=== PATIENT | female | born 1950 | race Caucasian/White ===

== ENCOUNTER 2017-12-29 13:26 | Inpatient (IN) | payer MEDICARE, MEDICAID ==
[2017-12-29 14:07] LABS: BASOPHILS # (AUTO) 0.1 10^3/uL (0.0-0.1); BASOPHILS % (AUTO) 1.4 %; EOSINOPHILS # (AUTO) 0.3 10^3/uL (0.0-0.7); EOSINOPHILS % (AUTO) 3.5 %; HGB - HEMOGLOBIN 13.3 g/dL (12.0-16.0); LYMPHOCYTES # (AUTO) 2.2 10^3/uL (1.5-3.5); LYMPHOCYTES % (AUTO) 24.7 %; MEAN CORPUSCULAR HEMOGLOBIN 28.7 pg (27.0-31.0); MEAN CORPUSCULAR HGB CONC 33.2 g/dL (32.0-36.0); MEAN CORPUSCULAR VOLUME 86.5 fL (81.0-99.0); MEAN PLATELET VOLUME 9.8 fL (7.9-10.8); MONOCYTES # (AUTO) 0.5 10^3/uL (0.0-1.0); MONOCYTES % (AUTO) 5.4 %; NEUTROPHILS # (AUTO) 5.9 10^3/uL (1.5-6.6); PLT - PLATELET COUNT 269 10^3/uL (130-450); RED BLOOD COUNT 4.62 10^6/uL (4.20-5.40); WHITE BLOOD COUNT 9.1 x10^3/uL (4.8-10.8)
[2017-12-29 14:18] LABS: ALBUMIN 3.7 g/dL (3.2-5.5); ALBUMIN/GLOBULIN RATIO 1.1 (1.0-2.2); BILIRUBIN,TOTAL 0.6 mg/dL (0.2-1.0); CREATININE 1.1 mg/dL (0.4-1.0); TOTAL PROTEIN 7.2 g/dL (6.7-8.2)
[2017-12-29] MEDS ORDERED: ASPIRIN CHEW 81 MG TABLET PO STA (15:00)
--- NOTE | 2017-12-29 15:02 | ED Physician Documentation ---
PD HPI CHEST PAIN - Stated complaint Stated Complaint: CHEST PX/SOA - Chief complaint Chief Complaint: Cardiac - History obtained from History obtained from: Patient - History of Present Illness Timing - onset: Other (She has had intermittent chest pain, substernal with occasional radiation to the right arm for the last 4 days. It does get worse with exertion and she is chronically short of breath with a history of diastolic dysfunction and asthma. She also notes pedal edema with some right calf pain and has had some right-sided back pain for the last week. She has not traveled recently. She had a stress test about 4 years ago which per her was negative.) Review of Systems Ten Systems: 10 systems reviewed and negative Constitutional: denies: Fever, Chills Cardiac: reports: Chest pain / pressure. denies: Palpitations Respiratory: reports: Dyspnea. denies: Cough GI: denies: Abdominal Pain, Nausea, Vomiting PD PAST MEDICAL HISTORY - Past Medical History Past Medical History: Yes Cardiovascular: Hypertension, High cholesterol Respiratory: Asthma - Present Medications Home Medications: Ambulatory Orders Medication Instructions Recorded Confirmed Acetaminophen 1,000 mg PO BID 12/29/17 12/29/17 Albuterol Sulf [Ventolin Hfa 1 - 2 puffs INH Q4HR PRN 12/29/17 12/29/17 Inhaler] Aspirin [Adult Aspirin] 81 mg PO DAILY 12/29/17 12/29/17 Atorvastatin Calcium 40 mg PO DAILY 12/29/17 12/29/17 Budesonide [Pulmicort Flexhaler] 1 puffs IH BID 12/29/17 12/29/17 Fluticasone [Flonase] 2 sprays GALA DAILY 12/29/17 12/29/17 Gabapentin 900 mg PO QPM 12/29/17 12/29/17 Isosorbide Mononitrate [Isosorbide 30 mg PO DAILY 12/29/17 12/29/17 Mononitrate ER] LORazepam [Ativan] 0.5 - 1 mg PO BID PRN 12/29/17 12/29/17 Lisinopril 30 mg PO DAILY 12/29/17 12/29/17 Nitroglycerin 0.4 mg SL PRN PRN 12/29/17 12/29/17 Sertraline HCl 100 mg PO DAILY 12/29/17 12/29/17 amLODIPine [Norvasc] 5 mg PO DAILY 12/29/17 12/29/17 - Allergies Allergies/Adverse Reactions: Allergies Allergy/AdvReac Type Severity Reaction Status Date / Time azithromycin Allergy Mild Rash Verified 12/29/17 13:38 ceftazidime Allergy Mild Rash Verified 12/29/17 13:40 ciprofloxacin [From Cipro] Allergy Mild Rash Verified 12/29/17 13:38 codeine Allergy Mild Dizziness Verified 12/29/17 13:39 erythromycin base Allergy Mild Nausea Verified 12/29/17 13:38 - Social History Does the pt drink ETOH?: No Does the pt have substance abuse?: No - Family History Family history: reports: CAD PD ED PE NORMAL - Vitals Vital signs reviewed: Yes - General General: Alert and oriented X 3, No acute distress - HEENT HEENT: PERRL, EOMI - Neck Neck: Supple, no meningeal sign, No bony TTP - Cardiac Cardiac: RRR, No murmur - Respiratory Respiratory: Clear bilaterally, Other (Nontender chest wall) - Abdomen Abdomen: Soft, Non tender - Derm Derm: Normal color, Warm and dry - Extremities Extremities: Other (Moderate bilateral pitting pedal edema with some right calf tenderness) - Neuro Neuro: Alert and oriented X 3, Normal speech Results - Vitals Vitals: Vital Signs - 24 hr 12/29/17 12/29/17 13:28 14:55 Temperature 37.2 C Heart Rate 60 Respiratory 20 Rate Blood Pressure 148/76 H Blood Pressure 201/84 H [Left] O2 Saturation 97 Oxygen O2 Source Room air - EKG (time done) 1333 Rate: Rate (enter#) (60) Rhythm: NSR Garfield: Normal Intervals: Normal NE QRS: Normal Ischemia: Normal ST segments Computer interpretation: Agree with computer - Labs Labs: Laboratory Tests 12/29/17 12/29/17 12/29/17 14:00 14:00 14:00 WBC 9.1 RBC 4.62 Hgb 13.3 Hct 40.0 MCV 86.5 MCH 28.7 MCHC 33.2 RDW 15.0 Plt Count 269 MPV 9.8 Neut # (Auto) 5.9 Lymph # (Auto) 2.2 Ross # (Auto) 0.5 Eos # (Auto) 0.3 Baso # (Auto) 0.1 Absolute Nucleated RBC 0.00 Nucleated RBC % 0.0 D-Dimer Sodium 139 Potassium 4.0 Chloride 105 Carbon Dioxide 25 Anion Gap 9.0 BUN 15 Creatinine 1.1 H Estimated GFR (MDRD) 50 L Glucose 102 H Calcium 9.0 Total Bilirubin 0.6 AST 22 ALT 10 Alkaline Phosphatase 129 H Troponin I < 0.04 Total Protein 7.2 Albumin 3.7 Globulin 3.5 Albumin/Globulin Ratio 1.1 Lipase 26 12/29/17 14:00 WBC RBC Hgb Hct MCV MCH MCHC RDW Plt Count MPV Neut # (Auto) Lymph # (Auto) Ross # (Auto) Eos # (Auto) Baso # (Auto) Absolute Nucleated RBC Nucleated RBC % D-Dimer 314.9 H Sodium Potassium Chloride Carbon Dioxide Anion Gap BUN Creatinine Estimated GFR (MDRD) Glucose Calcium Total Bilirubin AST ALT Alkaline Phosphatase Troponin I Total Protein Albumin Globulin Albumin/Globulin Ratio Lipase PD MEDICAL DECISION MAKING - ED course ED course: 67-year-old woman with intermittent but somewhat otherwise typical chest pain and risk factors. Her EKG is nonischemic and initial troponin negative. That said given her age, obesity, risk factors probably needs formal rule out and stress and spoke with Dr. Pugh for this at 3:15 PM. D-dimer pending on admission. - Sepsis Event Vital Signs: Vital Signs - 24 hr 12/29/17 12/29/17 13:28 14:55 Temperature 37.2 C Heart Rate 60 Respiratory 20 Rate Blood Pressure 148/76 H Blood Pressure 201/84 H [Left] O2 Saturation 97 Oxygen O2 Source Room air Departure - Departure Disposition: ED Place in Observation Clinical Impression: Chest pain Qualifiers: Chest pain type: unspecified Qualified Code(s): R07.9 - Chest pain, unspecified Condition: Stable Discharge Date/Time: 12/29/17 15:56
[2017-12-29] MEDS ORDERED: oxyCODONE 5 MG TABLET PO PRN (15:14)
[2017-12-29] MEDS ORDERED: ONDANSETRON ODT 4 MG TABLET TL PRN (15:14)
[2017-12-29] MEDS ORDERED: ONDANSETRON 4 MG/2 ML VIAL IVP PRN (15:14)
[2017-12-29] MEDS ORDERED: SODIUM CHLORIDE FLUSH 0.9% 10 ML SYRINGE IVP PRN (15:14)
--- NOTE | 2017-12-29 15:15 | XRAY Report ---
Reason: chest pain Procedure Date: 12/29/2017 Accession Number: [id number] / [id number] Procedure: XR - Chest 2 View X-Ray CPT Code: 29564 FULL RESULT: EXAM: CHEST RADIOGRAPHY EXAM DATE: 12/29/2017 02:37 PM. CLINICAL HISTORY: Chest pain. COMPARISON: None. TECHNIQUE: 2 views. FINDINGS: Mild cardiomegaly. Right upper lobe pulmonary nodule measures 1 cm. A smaller nodule is just adjacent to this laterally. No pleural effusion or pneumothorax. No consolidation. IMPRESSION: Mild cardiomegaly. A couple of right upper lobe pulmonary nodules, possibly calcified, largest measures 1 cm. Noncalcified pulmonary nodules are not excluded. No comparisons submitted. A chest CT could further evaluate. RADIA
--- NOTE | 2017-12-29 17:31 | HISTORY & PHYSICAL EXAMINATION ---
Chief Complaint - Chief Complaint Chief Complaint: Chest pain and shortness of breath History of Present Illness - Admitted From Admitted From:: Home/emergency room - History Obtained From Records Reviewed: [facility] History obtained from: Patient's Exam Limitations: None - History of Present Illness HPI Comment/Other: She is a 67-year-old morbidly obese female who has been overweight all of her life. Risk factors for heart disease include diabetes, hypertension, hyperlipidemia, and a known diastolic congestive heart failure. 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 For the last year she is known that her endurance is definitely decreased. 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 She has not been able to do that for over a year because of dyspnea on exertion. For the last month she has noticed that walking 10-20 steps wipes her out with dyspnea on exertion. She denied denies orthopnea, chest pain, fever, sweats. She has no jaw pain or arm pain with this. No diaphoresis. Denies palpitations or sensation of skipped heartbeats. She has lost 10 pounds in the last few weeks because she is desperately trying to lose weight. Then in the last 4 days she has had intermittent substernal chest pain. Sometimes it radiates to her right arm. It only last for a few seconds and then it is gone. It is with exertion. Not with rest. She is also noted that her leg swelling, which is chronic, is gotten a little bit worse in the last week. She has had a stress test in the past which was negative. She says that she has had an echocardiogram which diagnosed her diastolic dysfunction. She starts crying when she says that she is now realized that diastolic dysfunction mean she has congestive heart failure. In the emergency room she was evaluated by Dr. Ruggiero and found to have a mildly elevated blood pressure 148/76. But she was afebrile, bradycardic at 60 , and saturating normally. Her initial troponin is negative. Her initial EKG is unremarkable. She is now placed in observation for chest pain evaluation to include serial troponins, echo, and stress test. Transfer text History - Past Medical History Cardiovascular: reports: Congestive heart failure (Diastolic), Hypertension, High cholesterol Respiratory: reports: Asthma (All her life. Never been intubated. Never on steroids.) Neuro: reports: None Endocrine/Autoimmune: reports: Type 2 diabetes (Diagnosed 4 years ago. Diet controlled, no complications, used to be on metformin and stopped because her numbers were so good.) GI: reports: None SOLUTION MANAGER: reports: Other (, status post ) : reports: Other HEENT: reports: None Psych: reports: Depression, Anxiety Musculoskeletal: reports: Osteoarthritis (In the knees), Other (Degenerative disc disease of the spine) Derm: reports: Other (History of venous stasis dermatitis. Has had nonhealing calf ulcer on left leg for 4 years) - Past Surgical History General: reports: Appendectomy, Bowel surgery (Colon resection for bowel obstruction due to adhesions 1972) Ortho: reports: Carpal Tunnel surgery (Both hands in the past) /SOLUTION MANAGER: reports: section HEENT: reports: Cataracts (Both of them removed with lens implants), Tonsil/ Adenoidectomy - Family & Social History Family History Comment/Other: Dad at age 76 of a ruptured abdominal aortic aneurysm. Before his he had an OK, bypass surgery 3, and congestive heart failure. Mom in her 80s of interstitial lung disease and also had arrhythmias. 2 sisters. One has congestive heart failure and a PE. The other is healthy. One brother who is had bypass surgery 2 in the year 2010 and has COPD and has had an OK. One daughter is healthy Living arrangement: At home Living Situation: Alone Social History Notes: She was born in [facility]. At 9 months of age parents moved to [facility]. She lived there until 2009. [place] live [place] friends that it moved up here. When her brother got sick she went back down to [place] and lived there again. Moved back to [facility] in 2015 on a permanent basis. 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 She lives alone in her own apartment. She has been for many years. She is getting ready to travel to [place] between January 10 and January 24. She is desperate to do this trip and has been looking forward to it because as per her daughter lives. She starts crying at the idea that she may not get to go and lose the money. As well as not getting to see her daughter who she misses terribly. She has never smoked. Rarely drank. Has no history of alcohol abuse. Has never used recreational drugs. - Substance History Use: Uses substance without health or social issues: NONE Abuse: Recurrent use of substance despite neg consequences: NONE Dependence: Experiences withdrawal or developed tolerances: NONE - POLST Patient has POLST: No POLST Status: Full Code Meds/Allgy - Home Medications Home Medications: Ambulatory Orders Medication Instructions Recorded Confirmed Acetaminophen 1,000 mg PO BID 12/29/17 12/29/17 Albuterol Sulf [Ventolin Hfa 1 - 2 puffs INH Q4HR PRN 12/29/17 12/29/17 Inhaler] Aspirin [Adult Aspirin] 81 mg PO DAILY 12/29/17 12/29/17 Atorvastatin Calcium 40 mg PO DAILY 12/29/17 12/29/17 Budesonide [Pulmicort Flexhaler] 1 puffs IH BID 12/29/17 12/29/17 Fluticasone [Flonase] 2 sprays GALA DAILY 12/29/17 12/29/17 Gabapentin 900 mg PO QPM 12/29/17 12/29/17 Isosorbide Mononitrate [Isosorbide 30 mg PO DAILY 12/29/17 12/29/17 Mononitrate ER] LORazepam [Ativan] 0.5 - 1 mg PO BID PRN 12/29/17 12/29/17 Lisinopril 30 mg PO DAILY 12/29/17 12/29/17 Nitroglycerin 0.4 mg SL PRN PRN 12/29/17 12/29/17 Sertraline HCl 100 mg PO DAILY 12/29/17 12/29/17 amLODIPine [Norvasc] 5 mg PO DAILY 12/29/17 12/29/17 - Allergies Allergies/Adverse Reactions: Allergies Allergy/AdvReac Type Severity Reaction Status Date / Time azithromycin Allergy Mild Rash Verified 12/29/17 13:38 ceftazidime Allergy Mild Rash Verified 12/29/17 13:40 ciprofloxacin [From Cipro] Allergy Mild Rash Verified 12/29/17 13:38 codeine Allergy Mild Dizziness Verified 12/29/17 13:39 erythromycin base Allergy Mild Nausea Verified 12/29/17 13:38 Review of Systems - Constitutional Constitutional: reports: Weight loss (10 pounds, delivered over the last few months). denies: Fatigue, Fever, Chills, Malaise, Weakness, Poor appetite, Diaphoresis - Eyes Eyes: denies: Pain, Irritation, Amaurosis, Blurred vision - Ears, Nose & Throat Ears, Nose & Throat: denies: Ear pain, Hearing loss, Hearing aids, Tinnitus, Vertigo, Nasal obstruction, Nasal congestion, Postnasal drainage - Cardiovascular Cariovascular: reports: Chest pain, Edema, Exertional dyspnea, Decr. exercise tolerance. denies: Irregular heart rate, Palpitations, Lightheadedness, Syncope , Orthopnea - Respiratory Respiratory: reports: Wheezing (Rarely may be 2 or 3 times a year with her asthma.), Orthopnea, SOB with exertion, Apnea (Denies). denies: Cough, Sputum production - Gastrointestinal Gastrointestinal: reports: Other (Has never had a colonoscopy). denies: Abdominal pain, Abdominal distention, Constipation, Diarrhea, Change in bowel habits - Genitourinary Genitourinary: reports: Urgency, Incontinence - Musculoskeletal Musculoskeletal: denies: Muscle pain, Back pain, Muscle aches - Integumentary Integumentary: denies: Rash, Pruritis, Lesions - Neurological Neurological: denies: General weakness, Focal weakness, Headache, Dizziness, Memory problems, Pre-existing deficit - Psychiatric Psychiatric: reports: Depression, Anxiety - Endocrine Endocrine: denies: Polyuria, Polydypsia, Polyphagia - Hematologic/Lymphatic Hematologic/Lymphatic: denies: Anemia, Bruising, Petechiae Exam - Vital Signs Reviewed Vital Signs: Yes Vital Signs: Vital Signs x48h Temp Pulse Pulse Resp BP BP Pulse Ox 12/29/17 16:43 56 L 155/73 H 12/29/17 16:00 36.7 C 55 L 20 208/83 H 100 12/29/17 15:56 56 L 16 202/104 H 99 12/29/17 15:30 56 L 20 202/104 H 96 - Physical Exam General Appearance: positive: No acute distress, Alert, Other (Short statured morbidly obese female who at 5 foot 1 inches tall with 123 kg. Able to get up out of the bed, stand, get in and out of her hospital gown without any difficulty or dyspnea. But she says that walking down the hallway 10 feet will wipe her out.) Eyes Bilateral: positive: PERRL, EOMI ENT: positive: Pharynx nml Neck: positive: Other (Neck is thick and short, difficult to assess for JVD). negative: Stiff neck, Carotid bruit Respiratory: positive: No respiratory distress. negative: Wheezes, Rales, Rhonchi Cardiovascular: positive: Regular rate & rhythm, No murmur. negative: Gallop/S4 , Friction rub Peripheral Pulses: positive: 1+ Abdomen: positive: Non-tender, Nml bowel sounds, No distention, Other (Huge abdominal pannus with changes of resolving Joseline or heat rash underneath the pannus). negative: Guarding, Rebound Skin: positive: Warm, Dry, Other (Venous stasis changes that are chronic of the lower extremities. All of her skin is closed, healed except for that back left calf ulcer. Nursing is taken a picture of it.) Extremities: positive: Non-tender, Pedal edema (Mild.) Neurologic/Psychiatric: positive: Oriented x3, CN's nml (2-12), Motor nml, Sensation nml Conclusion/Plan - Problem List (1) Chest pain Conclusion/Plan: In a patient who has all the risk factors for coronary artery disease including obesity, hypertension, diabetes, hyperlipidemia and a family history. History is that of a progressive dyspnea for over a year, worsening over the last month , and now with chest pain for the last 4 days. Troponins are negative initially. Plan: Place in observation status Serial troponins every 63 more sets. Aspirin already given. Patient is already on atorvastatin, Imdur but not a beta-gloria. Will give dose of beta-gloria tonight. If troponins are negative, Lexiscan stress test tomorrow Qualifiers: Chest pain type: unspecified Qualified Code(s): R07.9 - Chest pain, unspecified (2) Chronic diastolic congestive heart failure, NYHA class 3 Conclusion/Plan: There is a gradual deterioration in her endurance that she is very descriptive of starting over a year ago. She is already on medical management with a nitrate, SANTI inhibitor, calcium channel gloria. Currently not on a diuretic. Plan echocardiogram in the morning. Await results of Lexiscan stress test. (3) Controlled type 2 diabetes mellitus with complication, without long-term current use of insulin Conclusion/Plan: Currently diet controlled. Random glucose is 102. She will be on a carb controlled diet, no medications during this hospitalization at this time. A1c in a.m. (4) Essential (primary) hypertension Conclusion/Plan: Her systolic is between 142 and 202. Quite high. She says she is usually not this high at home or in her doctor's office. She is on Norvasc, lisinopril, Imdur, and I will add a beta-gloria. Obviously, because of her asthma, this may need to be revisited. (5) CKD (chronic kidney disease) stage 3, GFR 30-59 ml/min Conclusion/Plan: Current GFR is 50. This may be due to hypertensive kidney disease. Diabetic kidney disease. I do not know what her baseline is. She will need to discuss this with her primary care provider when she returns to see him in follow-up next week. (6) Hyperlipidemia LDL goal <100 Conclusion/Plan: Fasting lipid profile in a.m. (7) History of extrinsic asthma Conclusion/Plan: We do not have long-acting bronchodilators via inhaler. Will use as needed albuterol while here. (8) Ulcer of left calf Conclusion/Plan: She has had this for 4 years. Thought to go through my head include peripheral vascular disease, Majolin's ulcer. She may need a skin biopsy if it has not healed in 4 years. Qualifiers: Non-pressure ulcer stage: with fat layer exposed Qualified Code(s): L97.222 - Non-pressure chronic ulcer of left calf with fat layer exposed (9) Full code status Conclusion/Plan: She feels that if she has a cardiopulmonary arrest, she would like to be intubated, have chest compressions, and brought back. - Lab Results Lab results reviewed: Yes Fish Bones: 12/29/17 14:00 12/29/17 14:00 Other Lab Results: Laboratory Tests 12/29/17 14:00 Troponin I < 0.04 - Diagnostic Imaging Results Diagnostic Imaging Results: positive: Final report reviewed Diagnostic Imaging Results Comments: FINDINGS: Mild cardiomegaly. Right upper lobe pulmonary nodule measures 1 cm. A smaller nodule is just adjacent to this laterally. No pleural effusion or pneumothorax. No consolidation. IMPRESSION: Mild cardiomegaly. A couple of right upper lobe pulmonary nodules, possibly calcified, largest measures 1 cm. Noncalcified pulmonary nodules are not excluded. No comparisons submitted. A chest CT could further evaluate. - EKG Results EKG Interpreted Independently: No EKG Comparison: Old EKG unavailable EKG Findings: NSR. Slightly delayed R wave progression at V4. Voltage low. Core Measures - Anticipated LOS I expect patient to be DC'd or transferred within 96 hours.: Yes - DVT/VTE - Prophylaxis VTE/DVT Device ordered at admit?: No Not Ordered - Low Risk: Very low risk
[2017-12-29] MEDS: SODIUM CHLORIDE FLUSH 0.9% 10 ML SYRINGE IVP SCH (20:38)
[2017-12-30] MEDS: SODIUM CHLORIDE FLUSH 0.9% 10 ML SYRINGE IVP SCH ×3 (03:42→20:43)
[2017-12-30 06:26] LABS: CALCIUM 8.5 mg/dL (8.5-10.3)
[2017-12-30] MEDS: POLYETHYLENE GLYCOL 3350 17 GM PACKET PO SCH (09:31)
[2017-12-30] MEDS ORDERED: REGADENOSON 0.4 MG/5 ML SYRINGE IVP ONE (10:33)
[2017-12-30] MEDS: ISOSORBIDE MONONITRATE ER 30 MG TABLET PO SCH (12:20)
[2017-12-30] MEDS: LISINOPRIL 20 MG TABLET PO SCH (12:20)
--- NOTE | 2017-12-30 13:51 | PROVIDER PROGRESS NOTE ---
Assessment/Plan - Problem List (1) Malignant essential hypertension Assessment/Plan: The patient's BP meds were not ordered after reconciled last night. No RN told the Asp Developer. No RN told the daytime Hospitalist. No message to anyone from the Pharmacist. (I wrote a Safety Incident report about that). This mid-morning, when pt was to have her stress test, BP was 240/140. BP remained very elevated despite getting her Lisinopril and Imdur STAT. She will need medication adjustment. Monitor BP more frequently today. Move her to inpatient status. (2) Chest pain Qualifiers: Chest pain type: unspecified Qualified Code(s): R07.9 - Chest pain, unspecified Assessment/Plan: Trops are neg x 3. Stress test is pending, but will not be done today, due to malignant HTN. Pt moved to inpatient status. (3) Chronic diastolic congestive heart failure, NYHA class 3 Assessment/Plan: HTN and CAD with ischemia may be the cause of this diastolic dysfunction. Continue to treat BP and antianginal meds. (4) DM type 2 (diabetes mellitus, type 2) Assessment/Plan: Pt only on a diet for DM control. Continue carb-control diet. - Current Meds Current Meds: Current Medications Generic Name Dose Route Start Last Admin Trade Name Freq PRN Reason Stop Dose Admin Isosorbide Mononitrate 30 mg 12/30/17 13:00 12/30/17 12:20 Imdur PO 30 mg DAILY LOUANN Administration Lisinopril 30 mg 12/30/17 12:15 12/30/17 12:20 Zestril PO 30 mg DAILY LOUANN Administration Polyethylene Glycol 17 gm 12/30/17 09:00 12/30/17 09:31 Miralax PO Not Given DAILY LOUANN Sodium Chloride 10 ml 12/29/17 17:00 12/30/17 12:20 Normal Saline Flush 0.9% IVP 10 ml 0100,[id number],1700 LOUANN Administration - Lab Result Fish Bone Diagrams: 12/29/17 14:00 01/01/18 05:30 - Additional Planning My Orders: My Active Orders 12/30/17 12:02 Albuterol 2.5 mg INH Q4HR PRN 12/30/17 12:15 Lisinopril [Zestril] 30 mg PO DAILY 12/30/17 13:00 Aspirin EC [Ecotrin] 81 mg PO DAILY Budesonide [Pulmicort] 0.5 mg INH RTBID Isosorbide Mononitrate ER [Imdur] 30 mg PO DAILY 12/30/17 13:42 Transfer [Admit \ Transfer \ Status] [] .ONCE 12/30/17 13:44 Telemetry- [] Q4HR 12/30/17 21:00 Gabapentin [Neurontin] 900 mg PO QPM 12/30/17 Dinner DIET [Low Sodium Diet] [DIET] 12/31/17 09:00 Sertraline [Zoloft] 100 mg PO DAILY Subjective - Subjective Patient Reports: Other (Still had 1-2 episodes of brief CP. Pt wondered why she got no BP meds last night, which is when she normally gets them.) Objective Vital Signs: Vital Signs - 24 hr 12/29/17 12/29/17 12/29/17 14:55 15:30 15:56 Temperature Heart Rate 56 L 56 L Heart Rate [ Radial] Respiratory 20 16 Rate Blood Pressure 202/104 H 202/104 H Blood Pressure [Left Radial artery] Blood Pressure 201/84 H [Left] O2 Saturation 96 99 12/29/17 12/29/17 12/29/17 16:00 16:43 20:13 Temperature 36.7 C 36.8 C Heart Rate Heart Rate [ 55 L 56 L 56 L Radial] Respiratory 20 16 Rate Blood Pressure Blood Pressure 208/83 H 155/73 H 139/66 H [Left Radial artery] Blood Pressure [Left] O2 Saturation 100 100 12/30/17 08:00 Temperature 36.5 C Heart Rate Heart Rate [ 67 Radial] Respiratory 16 Rate Blood Pressure Blood Pressure 156/66 H [Left Radial artery] Blood Pressure [Left] O2 Saturation 98 Oxygen O2 Source Room air I&O (Last 24 Hrs): Intake and Output Totals x24h 12/28/17 12/29/17 12/30/17 23:59 23:59 23:59 Intake Total 536 Balance 536 General: Alert, Oriented x3 HEENT: Mucous membr. moist/pink Neck: Supple Neuro: Non Focal Cardiovascular: No murmurs Respiratory: No respiratory distress Abdomen: Soft, Other (Obese) Extremities: No edema - Results Results: Laboratory Results WBC 9.1 x10^3/uL (4.8-10.8) 12/29/17 14:00 RBC 4.62 10^6/uL (4.20-5.40) 12/29/17 14:00 Hgb 13.3 g/dL (12.0-16.0) 12/29/17 14:00 Hct 40.0 % (37.0-47.0) 12/29/17 14:00 MCV 86.5 fL (81.0-99.0) 12/29/17 14:00 MCH 28.7 pg (27.0-31.0) 12/29/17 14:00 MCHC 33.2 g/dL (32.0-36.0) 12/29/17 14:00 RDW 15.0 % (12.0-15.0) 12/29/17 14:00 Plt Count 269 10^3/uL (130-450) 12/29/17 14:00 MPV 9.8 fL (7.9-10.8) 12/29/17 14:00 Neut # (Auto) 5.9 10^3/uL (1.5-6.6) 12/29/17 14:00 Lymph # (Auto) 2.2 10^3/uL (1.5-3.5) 12/29/17 14:00 Riley # (Auto) 0.5 10^3/uL (0.0-1.0) 12/29/17 14:00 Eos # (Auto) 0.3 10^3/uL (0.0-0.7) 12/29/17 14:00 Baso # (Auto) 0.1 10^3/uL (0.0-0.1) 12/29/17 14:00 Absolute Nucleated RBC 0.00 x10^3/uL 12/29/17 14:00 Nucleated RBC % 0.0 /100WBC 12/29/17 14:00 D-Dimer 314.9 ng/mL (200.0-255.0) H 12/29/17 14:00 Sodium 138 mmol/L (135-145) 12/30/17 05:55 Potassium 3.9 mmol/L (3.5-5.0) 12/30/17 05:55 Chloride 104 mmol/L (101-111) 12/30/17 05:55 Carbon Dioxide 26 mmol/L (21-32) 12/30/17 05:55 Anion Gap 8.0 (6-13) 12/30/17 05:55 BUN 18 mg/dL (6-20) 12/30/17 05:55 Creatinine 1.0 mg/dL (0.4-1.0) 12/30/17 05:55 Estimated GFR (MDRD) 55 (>89) L 12/30/17 05:55 Glucose 118 mg/dL (70-100) H 12/30/17 05:55 Calcium 8.5 mg/dL (8.5-10.3) 12/30/17 05:55 Total Bilirubin 0.6 mg/dL (0.2-1.0) 12/29/17 14:00 AST 22 IU/L (10-42) 12/29/17 14:00 ALT 10 IU/L (10-60) 12/29/17 14:00 Alkaline Phosphatase 129 IU/L (42-121) H 12/29/17 14:00 Troponin I < 0.04 ng/mL (<0.49) 12/30/17 02:15 Total Protein 7.2 g/dL (6.7-8.2) 12/29/17 14:00 Albumin 3.7 g/dL (3.2-5.5) 12/29/17 14:00 Globulin 3.5 g/dL (2.1-4.2) 12/29/17 14:00 Albumin/Globulin Ratio 1.1 (1.0-2.2) 12/29/17 14:00 Lipase 26 U/L (22-51) 12/29/17 14:00
[2017-12-30] MEDS: ASPIRIN EC 81 MG TABLET PO SCH (15:10)
[2017-12-30] MEDS: BUDESONIDE 0.5 MG/2 ML NEB INH SCH (20:15)
[2017-12-30] MEDS: GABAPENTIN 300 MG CAPSULE PO SCH (20:44)
[2017-12-30] MEDS: ACETAMINOPHEN 325 MG TABLET PO PRN ×2 (20:48→21:25)
[2017-12-31] MEDS: SODIUM CHLORIDE FLUSH 0.9% 10 ML SYRINGE IVP SCH ×4 (00:41→23:38)
[2017-12-31] MEDS: BUDESONIDE 0.5 MG/2 ML NEB INH SCH ×3 (01:56→20:47)
[2017-12-31] MEDS: POLYETHYLENE GLYCOL 3350 17 GM PACKET PO SCH (08:25)
[2017-12-31] MEDS: LISINOPRIL 20 MG TABLET PO SCH (08:25)
[2017-12-31] MEDS: ISOSORBIDE MONONITRATE ER 30 MG TABLET PO SCH ×2 (08:25→20:18)
[2017-12-31] MEDS: ASPIRIN EC 81 MG TABLET PO SCH (08:25)
[2017-12-31] MEDS: SERTRALINE 50 MG TABLET PO SCH (08:33)
[2017-12-31] MEDS ORDERED: amLODIPine 5 MG TABLET PO SCH (09:00)
[2017-12-31] MEDS ORDERED: REGADENOSON 0.4 MG/5 ML SYRINGE IVP ONE ×2 (10:29→13:28)
--- NOTE | 2017-12-31 15:04 | Nuclear Medicine Report ---
Reason: chest pain Procedure Date: 12/31/2017 Accession Number: [id number] / [id number] Procedure: NM - Myocardial Perfusion STR/RST CPT Code: FULL RESULT: EXAM: SINGLE-ISOTOPE PHARMACOLOGICAL STRESS TEST WITH REGADENOSON. SINGLE-ISOTOPE AND ONE-DAY REST/STRESS MYOCARDIAL PERFUSION SCANS WITH TOMOGRAPHIC IMAGING, QUANTITATIVE ANALYSIS, WALL MOTION ANALYSIS AND CALCULATION OF EJECTION FRACTION. EXAM DATE: 12/31/2017 01:50 PM. CLINICAL HISTORY: Chest pain. COMPARISON: None available. TECHNIQUE: After the intravenous administration of 8.9 mCi of Tc-99m sestamibi, a rest myocardial perfusion scan was done with tomography. Motion correction was applied when appropriate. After an appropriate delay, pharmacological stress was performed with the infusion of 0.4 mg regadenoson per protocol. According to protocol, 38 mCi of Tc-99m sestamibi was injected for stress myocardial perfusion scan. Motion correction was applied when appropriate. Gated tomographic images were obtained for wall motion analysis and computation of left ventricular ejection fraction. FINDINGS: Images show a small, mild, reversible defect in the distal anterolateral wall. There is a small, mild, fixed defect in the distal anteroseptal wall. No other convincing fixed or reversible perfusion defects. Computer analysis: Summed stress score 4 Summed rest score 0 Summed difference score 4 Wall motion analysis demonstrates no focal wall motion abnormality. The left ventricular end-diastolic volume is 81 cc. The left ventricular end-systolic volume is 20 cc. The left ventricular ejection fraction is calculated to be 76%. IMPRESSION: 1. Small, mild, fixed defect in the distal anteroseptal wall. Small, mild, reversible defect in the distal anterolateral wall. 2. Left ventricular ejection fraction of 76%. 3. Normal segmental and global wall motion. 4. Normal left ventricular cavity size, no change with stress. 5. Based on computer analysis, mildly abnormal exam with mild ischemia. RADIA
--- NOTE | 2017-12-31 19:37 | PROVIDER PROGRESS NOTE ---
Assessment/Plan - Problem List (1) Malignant essential hypertension Assessment/Plan: Restarting her usual doses of meds has resulted in BP control. Continue present meds and with increase of Nitrates (see below), better BP expected. Monitor VS per routine (2) Chest pain Qualifiers: Chest pain type: unspecified Qualified Code(s): R07.9 - Chest pain, unspecified Assessment/Plan: Abnormal stress test showing reversible ischemia. Will increase Nitrate dose. Will contact her established habitat management coordinator regarding transfer for a coronary angiogram. I discussed this plan with the patient and she is agreeable and provided the name of her habitat management coordinator: Dr Villa Pinto at [facility]. (3) Chronic diastolic congestive heart failure, NYHA class 3 Assessment/Plan: CAD with ishemia plus HTN are adding to this problem. Continue present meds as she is not in overt CHF currently. (4) DM type 2 (diabetes mellitus, type 2) Assessment/Plan: Continue dietary management. - Current Meds Current Meds: Current Medications Generic Name Dose Route Start Last Admin Trade Name Del PRN Reason Stop Dose Admin Acetaminophen 650 mg 12/29/17 15:14 12/30/17 21:25 Tylenol PO 650 mg Q4HR PRN Administration Pain 1 to 4 Aspirin 81 mg 12/30/17 13:00 12/31/17 08:25 Ecotrin PO 81 mg DAILY LOUANN Administration Budesonide 0.5 mg 12/30/17 13:00 12/31/17 07:45 Pulmicort INH 0.5 mg RTBID LOUANN Administration Gabapentin 900 mg 12/30/17 21:00 12/30/17 20:44 Neurontin PO 900 mg QPM LOUANN Administration Lisinopril 30 mg 12/30/17 12:15 12/31/17 08:25 Zestril PO 30 mg DAILY LOUANN Administration Ondansetron HCl 4 mg 12/29/17 15:14 12/31/17 12:03 Zofran Inj IVP 4 mg Q6HR PRN Administration Nausea / Vomiting Polyethylene Glycol 17 gm 12/30/17 09:00 12/31/17 08:25 Miralax PO Not Given DAILY LOUANN Sertraline HCl 100 mg 12/31/17 09:00 12/31/17 08:33 Zoloft PO 100 mg DAILY LOUANN Administration Sodium Chloride 10 ml 12/29/17 15:14 12/31/17 12:04 Normal Saline Flush 0.9% IVP 10 ml PRN PRN Administration NEEDED PER PROVIDER ORDERS Sodium Chloride 10 ml 12/29/17 17:00 12/31/17 08:33 Normal Saline Flush 0.9% IVP 10 ml 0100,0900,1700 LOUANN Administration - Lab Result Fish Bone Diagrams: 12/29/17 14:00 01/01/18 05:30 - Additional Planning My Orders: My Active Orders 12/30/17 20:17 RT [Nebulizer/MDI Tx.] [RC] BID 12/30/17 21:00 Gabapentin [Neurontin] 900 mg PO QPM 12/31/17 09:00 Sertraline [Zoloft] 100 mg PO DAILY 12/31/17 21:00 Isosorbide Mononitrate ER [Imdur] 30 mg PO BID 12/31/17 Dinner Carb-controlled Diet [DIET] 01/01/18 05:00 BMP - BASIC METABOLIC PANEL [CHEM] DAILYLAB LIPID Panel [CHEM] Routine Subjective - Subjective Patient Reports: Other (1 episode of chest pain overnight, resolved on its own in 15 min) Objective Vital Signs: Vital Signs - 24 hr 12/30/17 12/30/17 12/31/17 20:05 20:20 00:45 Temperature 36.7 C 36.5 C Heart Rate 62 Heart Rate [ 62 64 Radial] Respiratory 18 18 16 Rate Blood Pressure 145/72 H 130/51 L [Left Radial artery] O2 Saturation 98 97 12/31/17 12/31/17 12/31/17 05:40 07:45 08:00 Temperature 36.7 C 36.3 C L Heart Rate 58 L Heart Rate [ 60 65 Radial] Respiratory 16 14 20 Rate Blood Pressure 140/53 H 151/66 H [Left Radial artery] O2 Saturation 96 97 12/31/17 12/31/17 12/31/17 13:46 15:51 16:18 Temperature 36.5 C 36.4 C L Heart Rate Heart Rate [ 61 64 61 Radial] Respiratory 20 20 Rate Blood Pressure 130/61 121/38 L 139/65 H [Left Radial artery] O2 Saturation 93 97 Oxygen O2 Source Room air I&O (Last 24 Hrs): Intake and Output Totals x24h 12/29/17 12/30/17 12/31/17 23:59 23:59 23:59 Intake Total 536 1487 550 Balance 536 1487 550 General: Alert, Oriented x3 HEENT: Mucous membr. moist/pink Neck: Supple, No JVD Neuro: Non Focal Cardiovascular: No murmurs Respiratory: No respiratory distress, Breath sounds nml Abdomen: Other (Obese, non-tender) Extremities: No edema - Results Results: Laboratory Results WBC 9.1 x10^3/uL (4.8-10.8) 12/29/17 14:00 RBC 4.62 10^6/uL (4.20-5.40) 12/29/17 14:00 Hgb 13.3 g/dL (12.0-16.0) 12/29/17 14:00 Hct 40.0 % (37.0-47.0) 12/29/17 14:00 MCV 86.5 fL (81.0-99.0) 12/29/17 14:00 MCH 28.7 pg (27.0-31.0) 12/29/17 14:00 MCHC 33.2 g/dL (32.0-36.0) 12/29/17 14:00 RDW 15.0 % (12.0-15.0) 12/29/17 14:00 Plt Count 269 10^3/uL (130-450) 12/29/17 14:00 MPV 9.8 fL (7.9-10.8) 12/29/17 14:00 Neut # (Auto) 5.9 10^3/uL (1.5-6.6) 12/29/17 14:00 Lymph # (Auto) 2.2 10^3/uL (1.5-3.5) 12/29/17 14:00 Stewart # (Auto) 0.5 10^3/uL (0.0-1.0) 12/29/17 14:00 Eos # (Auto) 0.3 10^3/uL (0.0-0.7) 12/29/17 14:00 Baso # (Auto) 0.1 10^3/uL (0.0-0.1) 12/29/17 14:00 Absolute Nucleated RBC 0.00 x10^3/uL 12/29/17 14:00 Nucleated RBC % 0.0 /100WBC 12/29/17 14:00 D-Dimer 314.9 ng/mL (200.0-255.0) H 12/29/17 14:00 Sodium 138 mmol/L (135-145) 12/30/17 05:55 Potassium 3.9 mmol/L (3.5-5.0) 12/30/17 05:55 Chloride 104 mmol/L (101-111) 12/30/17 05:55 Carbon Dioxide 26 mmol/L (21-32) 12/30/17 05:55 Anion Gap 8.0 (6-13) 12/30/17 05:55 BUN 18 mg/dL (6-20) 12/30/17 05:55 Creatinine 1.0 mg/dL (0.4-1.0) 12/30/17 05:55 Estimated GFR (MDRD) 55 (>89) L 12/30/17 05:55 Glucose 118 mg/dL (70-100) H 12/30/17 05:55 Calcium 8.5 mg/dL (8.5-10.3) 12/30/17 05:55 Total Bilirubin 0.6 mg/dL (0.2-1.0) 12/29/17 14:00 AST 22 IU/L (10-42) 12/29/17 14:00 ALT 10 IU/L (10-60) 12/29/17 14:00 Alkaline Phosphatase 129 IU/L (42-121) H 12/29/17 14:00 Troponin I < 0.04 ng/mL (<0.49) 12/30/17 02:15 Total Protein 7.2 g/dL (6.7-8.2) 12/29/17 14:00 Albumin 3.7 g/dL (3.2-5.5) 12/29/17 14:00 Globulin 3.5 g/dL (2.1-4.2) 12/29/17 14:00 Albumin/Globulin Ratio 1.1 (1.0-2.2) 12/29/17 14:00 Lipase 26 U/L (22-51) 12/29/17 14:00 ABX Reporting Has patient been on IV antibiotics over the past 48 hours?: No
[2017-12-31] MEDS: GABAPENTIN 300 MG CAPSULE PO SCH (20:17)
[2017-12-31] MEDS: ALBUTEROL NEB 2.5 MG/3 ML INH PRN (20:46)
[2017-12-31] MEDS ORDERED: ATORVASTATIN 40 MG TABLET PO SCH (21:00)
[2018-01-01 06:24] LABS: BUN - BLOOD UREA NITROGEN 17 mg/dL (6-20); CALCIUM 8.6 mg/dL (8.5-10.3); CARBON DIOXIDE - CO2 27 mmol/L (21-32); CHLORIDE 104 mmol/L (101-111); CHOL/HDL RATIO 4.9 (<4.4); CHOLESTEROL 190 mg/dL; CREATININE 1.1 mg/dL (0.4-1.0); GFR - MDRD 50 (>89); GLUCOSE 111 mg/dL (70-100); HDL CHOLESTEROL 39 mg/dL; LDL CHOLESTEROL,CALCULATED 123 mg/dL; LDL/HDL RATIO 3.2 (<4.4); SODIUM 138 mmol/L (135-145); VLDL CHOLESTEROL 28 mg/dL
[2018-01-01] MEDS: BUDESONIDE 0.5 MG/2 ML NEB INH SCH (08:37)
[2018-01-01] MEDS: ALBUTEROL NEB 2.5 MG/3 ML INH PRN (08:37)
[2018-01-01] MEDS: LISINOPRIL 20 MG TABLET PO SCH (08:39)
[2018-01-01] MEDS: SERTRALINE 50 MG TABLET PO SCH (08:39)
[2018-01-01] MEDS: ASPIRIN EC 81 MG TABLET PO SCH (08:40)
[2018-01-01] MEDS: ISOSORBIDE MONONITRATE ER 30 MG TABLET PO SCH (08:40)
[2018-01-01] MEDS: POLYETHYLENE GLYCOL 3350 17 GM PACKET PO SCH (08:40)
[2018-01-01] MEDS: SODIUM CHLORIDE FLUSH 0.9% 10 ML SYRINGE IVP SCH (08:40)
--- NOTE | 2018-01-01 13:10 | Discharge Plan ---
Discharge Plan Disposition: 02 Transfer Acute Care Hosp Condition: Stable Instruction Topics: CAD No Smoking: If you smoke, Please STOP! Call for help. Follow-up with: Leonidas Oconnell MD [Primary Care Provider] -
[2018-01-01 15:38] VITALS: BP 129/50
--- NOTE | 2018-01-08 01:58 | CARDIAC PROCEDURE NOTE ---
DATE OF SERVICE: 12/31/2017 Physician: Mitzi Sung MD INDICATION FOR STRESS TEST: Chest pain. CORONARY RISK FACTORS 1. Hypertension. 2. Diabetes. 3. Family history of heart disease. 4. Obesity. 5. Postmenopausal status. After signing informed consent, the patient underwent a Lexiscan pharmaceutical stress test with myocardial perfusion nuclear imaging. RESTING ELECTROCARDIOGRAM: Normal sinus rhythm and within normal limits. The patient developed chest pain and nausea with Lexiscan, which resolved spontaneously after 5 minutes. Resting heart rate 57, peak heart rate 79, resting blood pressure 152/78, peak blood pressure 174/80. PEAK ELECTROCARDIOGRAM: New T-wave flattening in leads III and aVF. IMPRESSION: Abnormal electrocardiogram changes that suggest ischemia on this pharmaceutical stress test. NUCLEAR IMAGES: Reported separately. TD: 01/07/2018 20:20 MTDD
--- NOTE | 2018-01-11 17:17 | DISCHARGE SUMMARY ---
Physician: Mitzi Sung MD DATE OF ADMISSION: 12/30/2017 DATE OF DISCHARGE: 01/01/2018 HISTORY OF PRESENT ILLNESS: This is a 67-year-old white female with history of obesity, diabetes with diet control, hyperlipidemia, hypertension, family history of heart disease, who presents with a 1-year history of progressive dyspnea on exertion and then over the past 1 month severe dyspnea even walking 10-20 steps. For the previous 4 days, she has had intermittent exertional chest pain that lasts less than 5 minutes. She presented to the emergency room because of these complaints and was placed in Observation to evaluate chest pain and shortness of breath. HOSPITAL COURSE AND DISCHARGE DIAGNOSES 1. Malignant essential hypertension. The patient had an admission blood pressure of 202/104. She described that her blood pressure medications have recently been escalated. On the following day, blood pressure was noted to be 240/100, and she was changed from Observation status to full admission for management of hypertension and the other problems. With increasing doses of medications plus new anginal medications, her blood pressure was controlled at the time of transfer: 129/50 with a heart rate of 54. 2. Chest pain. The patient had 3 troponins, which were all negative. She went on to have a Lexiscan stress test with myocardial perfusion imaging. The patient developed chest pain and nausea with the Lexiscan that resolved spontaneously after 5 minutes. The patient's EKG at rest showed normal sinus rhythm and was within normal limits, but with stress, she had new T-wave flattening in leads III and aVF. The nuclear image showed a small reversible defect in the distal anterolateral wall and a small fixed defect in the distal anteroseptal wall. I called her established hotel lobby concierge, Dr. Dat Pinto, who accepted her in transfer for a planned angiogram, on the service of her partner, Dr. Rider. The patient was transferred on 01/01/2018 to [facility]. 3. Chronic diastolic heart failure, [place] Heart Association class III. The patient has had prior Echocardiograms. An Echo done during this admission showed mild LVH, EF of 55% to 60% with diastolic dysfunction indeterminate. The right heart was normal. 4. Diabetes, type 2. The patient was on diet control management of her diabetes only. She was on sliding scale insulin and glucose checks while here. The patient's Lipid panel showed triglycerides of 142, LDL of 123, an HDL of 39. 5. Abnormal chest x-ray. Her admission chest x-ray showed mild cardiomegaly and pulmonary nodules. A chest CT is advised for further evaluation of the lung parenchyma.. ALLERGIES 1. ZITHROMAX. 2. CEFTAZIDIME. 3. CIPROFLOXACIN. 4. ERYTHROMYCIN. 5. CODEINE. DISCHARGE MEDICATIONS At the time of transfer: 1. Albuterol p.r.n. 2. Percocet p.r.n. 3. Tylenol p.r.n. 4. Amlodipine 5 mg daily. 5. Baby aspirin daily. 6. Lipitor 40 mg daily. 7. Pulmicort inhaler b.i.d. 8. Flonase spray daily. 9. Gabapentin 900 mg every evening. 10. Isosorbide mononitrate 30 mg daily. 11. Lisinopril 30 mg daily. 12. Ativan p.r.n. 13. Sertraline 100 mg daily. PHYSICAL EXAMINATION AT DISCHARGE VITAL SIGNS: Blood pressure 130/63, pulse of 68 in sinus rhythm, afebrile, room air saturation 97%. HEENT: Unremarkable. NECK: No JVD or carotid bruits. CHEST: Clear. HEART: Sounds normal. ABDOMEN: Soft, obese, nontender. EXTREMITIES: Trace pretibial edema. No clubbing or cyanosis. NEUROLOGIC: Intact. FOLLOWUP: This is to be determined after the angiogram and hospitalization at [facility]. CODE STATUS: FULL CODE. Time required to complete this entire discharge, dictation, arrangement for transfer: 60 minutes. cc: Leonidas Oconnell MD TD: 01/11/2018 13:10 [facility]
== END 2018-01-01 15:53 | disposition short-term general hospital (02) | DRG 303 ==
LOC: ED 13:26 → MS2 15:14 → OBSVTOIN 12-30 13:42
PROVIDERS: ADMIT Specialist; ATTEND Internal Medicine
DX: R07.9 Chest pain, unspecified (principal); I25.110 Atherosclerotic heart disease of native coronary artery with unstable angina pectoris; I13.0 Hypertensive heart and chronic kidney disease with heart failure and stage 1 through stage 4 chronic kidney disease, or unspecified chronic kidney disease; I10 Essential (primary) hypertension; E78.00 Pure hypercholesterolemia, unspecified; Z68.43 Body mass index [BMI] 50.0-59.9, adult; L97.222 Non-pressure chronic ulcer of left calf with fat layer exposed; I50.32 Chronic diastolic (congestive) heart failure; E11.622 Type 2 diabetes mellitus with other skin ulcer; E11.22 Type 2 diabetes mellitus with diabetic chronic kidney disease; N18.3 Chronic kidney disease, stage 3 (moderate); J45.909 Unspecified asthma, uncomplicated; E78.5 Hyperlipidemia, unspecified; E66.9 Obesity, unspecified; R91.8 Other nonspecific abnormal finding of lung field; F32.9 Major depressive disorder, single episode, unspecified; F41.9 Anxiety disorder, unspecified; M19.90 Unspecified osteoarthritis, unspecified site; R39.15 Urgency of urination; R32 Unspecified urinary incontinence; Z79.82 Long term (current) use of aspirin; Z79.51 Long term (current) use of inhaled steroids; Z90.49 Acquired absence of other specified parts of digestive tract; Z82.49 Family history of ischemic heart disease and other diseases of the circulatory system
CPT/HCPCS: 36415; 71046; 78452; 80048; 80053; 80061; 83690; 83721; 84484; 85025; 85379; 93005; 93017; 93306; 94640; 99283; 99284; 99285